=== PATIENT | female | born 1965 | race Caucasian/White ===

== ENCOUNTER → 2020-02-05 | Outpatient (CLI) | payer OTHER ==
[2016-01-13 15:57] VITALS: BP 113/64
[~2020-02-05] MED LIST: CARV6.2511 PO; FAMO20TA5 PO; LISI-334 PO
--- NOTE | 2020-02-05 15:55 | KCIC ---
Bilateral digital screening mammograms: Reason for examination: Routine screening. Comparison is made to previous study dated 07/26/2011. Interpretation was made with the benefit of CAD. The skin and nipples show no abnormalities. No abnormal axillary lymph nodes are seen. The breast parenchyma shows scattered fibroglandular density. (Breast density: Category B.) There are postoperative changes in the right breast with surgical clips present. There appears to be a new nodule at the 6:00 position anteriorly in the right breast measuring approximately 6 mm in size. Further evaluation with ultrasound is recommended. There are no other dominant masses, suspicious calcifications or architectural distortions. Impression: 6 mm nodule in the 6:00 position 3 cm from the nipple of the right breast anteriorly. Recommend further evaluation with ultrasound. BI-RADS Category 0: Incomplete. Needs additional imaging evaluation. "Our facility is accredited by the [employer] Mammography [employer]." This patient's information has been entered into a reminder system for the patient to be notified with the results of her examination and a target date for the next mammogram. Electronically signed by: Melita Meyers MD (02/05/2020 3:51 PM) [id number]
== END ==
LOC: KCIC MAMMO 08:07
PROVIDERS: ATTEND Nurse Practitioner
DX: Z12.31 Encounter for screening mammogram for malignant neoplasm of breast (principal); N64.89 Other specified disorders of breast
CPT/HCPCS: 77067